=== PATIENT | male | born 1970 | race Caucasian/White ===

== ENCOUNTER 2019-09-12 05:57 | Day surgery (SDC) | payer OTHER ==
[~2019-09-12] VITALS: Ht 177.8 cm; Wt 100.2 kg
[~2019-09-12 05:57] MED LIST: HYDR25SUP PR
--- NOTE | 2019-09-12 07:36 | NUR ---
"DAY SURGERY RN | TO OR BOTH DOCTORS HAVE SEEN PATIENT. REPORT TO JAYLIN HUANG. IV PUFFY BUT FLOWING TO GRAVITY WELL. TO OR."
--- NOTE | 2019-09-12 09:42 | NUR ---
Discharge instructions reviewed with patient. Patient verbalizes understanding. Copy given to patient to take home. TOLERATING JUICE WELL. PT HAS BEEN RESTING QUIETLY.
--- NOTE | 2019-09-12 10:21 | NUR ---
RIDE HERE. PT REQUEST PAIN MED BEFORE LEAVING. GAVE NORCO X1 PER ORDER. DRG C/D/I. PT DRESSED, AMBULATING WELL. Discharged via wheelchair to private car for ride home.
== END 2019-09-12 10:23 | disposition home or self-care (01) ==
LOC: ORSCMMR 05:57 → ORD 07:30 → ORSCMMR 07:30
PROVIDERS: Surgery
PROC: 0H88XZZ Division of Buttock Skin, External Approach (ICD-10-PCS; principal; 2019-09-12 07:30)
DX: K60.5 Anorectal fistula (principal)
CPT/HCPCS: A9270-GY; J0694; J1100; J1885; J2250; J2405; J2704; J2710; J3010; J7120